=== PATIENT | male | born 1980 | race African-American/Black ===

== ENCOUNTER 2024-06-25 21:01 | Inpatient (IN) | payer OTHER, SELFPAY ==
[~2024-06-25] VITALS: Ht 180.3 cm; Wt 146.6 kg
[2024-06-25 21:28] LABS: BASOPHILS % 1.2 % (0.0-2.0); EOSINOPHILS % 1.9 % (0.0-5.0); HEMATOCRIT. 43.6 % (42.0-52.0); HEMOGLOBIN. 14.5 g/dL (14.0-18.0); LYMPHOCYTES % 24.6 % (20.0-50.0); MEAN CORPUSCULAR HEMOGLOBIN 28.3 pg (28.0-32.0); MEAN CORPUSCULAR HGB CONC 33.3 g/dL (31.0-37.0); MEAN CORPUSCULAR VOLUME 85.1 fL (80.0-94.0); MEAN PLATELET VOLUME 7.8 fl (7.4-10.4); MONOCYTES % 10.2 % (2.0-8.0); NEUTROPHILS % 62.1 % (40.0-76.0); PLATELET 323 x1000/uL (130-400); RED BLOOD CELL COUNT 5.12 mill/uL (4.7-6.1); RED CELL DISTRIBUTION WIDTH 15.1 % (11.6-14.6); WHITE BLOOD COUNT 6.3 x1000/uL (4.5-11.0)
[2024-06-25 21:31] LABS: CHLORIDE 104 mEq/L (98-107); POTASSIUM 5.2 mEq/L (3.5-5.1); SODIUM 136 mEq/L (136-145)
[2024-06-25 21:32] LABS: CALCIUM 9.2 mg/dL (8.7-10.4); CARBON DIOXIDE 24 mEq/L (21-32)
[2024-06-25 21:37] LABS: CREATININE 1.1 mg/dL (0.6-1.3); GLUCOSE 91 mg/dL (70-105); UREA NITROGEN BLOOD 13 mg/dL (9-23)
[2024-06-25 21:38] LABS: TROPONIN I HIGH SENSITIVITY 49 ng/L (3.0-53)
[2024-06-25] MEDS ORDERED: GUAIFENESIN 200MG/10ML SUGAR FREE UDC PO PRN (23:15)
[2024-06-25] MEDS ORDERED: MAGNESIUM/ALUMINUM HYDROXIDE/SIMETHICONE 30ML UDC PO PRN (23:15)
[2024-06-25] MEDS ORDERED: ACETAMINOPHEN 325MG TABLET PO PRN (23:15)
[2024-06-25] MEDS ORDERED: ONDANSETRON HCL 4MG/2ML INJ IV PRN (23:15)
[2024-06-25] MEDS ORDERED: DOCUSATE SODIUM 100MG CAPSULE PO PRN (23:15)
[2024-06-25] MEDS ORDERED: IPRATROPIUM/ALBUTEROL 0.5-3(2.5)MG/3ML NEB HHN PRN (23:15)
[2024-06-25] MEDS: AMLODIPINE 5MG TABLET PO NR (23:22)
[2024-06-25 23:52] LABS: TROPONIN I HIGH SENSITIVITY 283 ng/L (3.0-53)
[2024-06-26 01:03] LABS: CLARITY URINE CLEAR (CLEAR); COLOR URINE YELLOW (YELLOW); GLUCOSE URINE NEGATIVE (NEGATIVE); KETONES URINE NEGATIVE (NEGATIVE); LEUKOCYTE ESTERASE URINE NEGATIVE (NEGATIVE); NITRITE URINE NEGATIVE (NEGATIVE); OCCULT BLOOD URINE NEGATIVE (NEGATIVE); PH URINE 6.5 (4.5-8.0); PROTEIN URINE TRACE (NEGATIVE); SPECIFIC GRAVITY URINE 1.019 (1.005-1.030); UROBILINOGEN URINE 0.2 E.U./dL (0.2-1.0)
[2024-06-26 01:12] LABS: *AMPHETAMINES SCREEN URINE NEGATIVE (NEGATIVE); *BARBITURATES SCREEN URINE NEGATIVE (NEGATIVE); *BENZODIAZEPINES SCREEN URINE NEGATIVE (NEGATIVE); *COCAINE SCREEN URINE NEGATIVE (NEGATIVE); METHADONE URINE SCREEN NEGATIVE (NEGATIVE); OPIATES URINE SCREEN NEGATIVE (NEGATIVE)
[2024-06-26 01:13] LABS: CANNABINOID URINE SCREEN PRESUMPTIVE POSITIVE (NEGATIVE); ECSTASY MDMA SCREEN URINE NEGATIVE (NEGATIVE); PHENCYCLIDINE URINE SCREEN NEGATIVE (NEGATIVE)
[2024-06-26] MEDS ORDERED: ENOXAPARIN 150MG/ML SYR SUBCUT NR (04:00)
[2024-06-26 04:04] LABS: BASOPHILS % 0.8 % (0.0-2.0); EOSINOPHILS % 1.1 % (0.0-5.0); HEMATOCRIT. 44.2 % (42.0-52.0); HEMOGLOBIN. 14.3 g/dL (14.0-18.0); LYMPHOCYTES % 24.7 % (20.0-50.0); MEAN CORPUSCULAR HEMOGLOBIN 27.4 pg (28.0-32.0); MEAN CORPUSCULAR HGB CONC 32.3 g/dL (31.0-37.0); MEAN CORPUSCULAR VOLUME 84.8 fL (80.0-94.0); MEAN PLATELET VOLUME 7.2 fl (7.4-10.4); MONOCYTES % 12.7 % (2.0-8.0); NEUTROPHILS % 60.7 % (40.0-76.0); PLATELET 307 x1000/uL (130-400); RED BLOOD CELL COUNT 5.22 mill/uL (4.7-6.1); RED CELL DISTRIBUTION WIDTH 15.2 % (11.6-14.6); WHITE BLOOD COUNT 8.3 x1000/uL (4.5-11.0)
[2024-06-26 04:10] LABS: CHLORIDE 105 mEq/L (98-107); SODIUM 138 mEq/L (136-145)
[2024-06-26 04:11] LABS: CARBON DIOXIDE 26 mEq/L (21-32)
[2024-06-26 04:16] LABS: GLUCOSE 104 mg/dL (70-105); TRIGLYCERIDE 78 mg/dL (0-150); UREA NITROGEN BLOOD 11 mg/dL (9-23)
[2024-06-26 04:17] LABS: LDL CHOLESTEROL 135 mg/dL (5-100)
[2024-06-26 04:18] LABS: CHOLESTEROL 197 mg/dL (<200); HDL CHOLESTEROL 51 mg/dL (>55)
[2024-06-26 04:56] LABS: BACTERIA URINE NONE SEEN; RBC URINE 0-2 /hpf (0-2); SQUAMOUS EPITHELIAL CELL URINE NONE SEEN /lpf (RARE/1+); WBC URINE 0-2 /hpf (0-2)
[2024-06-26] MEDS: CLONIDINE 0.1MG TABLET PO PRN (04:57)
[2024-06-26 06:00] LABS: INR 0.9; PROTHROMBIN TIME 10.5 sec (9.6-11.0)
[2024-06-26] MEDS: ENOXAPARIN 150MG/ML SYR SUBCUT SCH (06:32)
[2024-06-26 08:59] VITALS: BP 16/119; PULSE 79; RESP 16; TEMP 36.22512; O2SAT 99
[2024-06-26 09:40] VITALS: BP 161/119; PULSE 79; RESP 18; TEMP 36.22512; O2SAT 99
[2024-06-26] MEDS: AMLODIPINE 5MG TABLET PO SCH ×2 (09:44→21:12)
[2024-06-26] MEDS: ASPIRIN 81MG EC TABLET PO SCH (09:44)
[2024-06-26 12:04] VITALS: BP 144/98; PULSE 72; RESP 18; TEMP 36.6404
[2024-06-26 12:20] VITALS: BP 144/98; PULSE 72; RESP 18; TEMP 36.61404; O2SAT 97
[2024-06-26 16:00] VITALS: BP 143/92; PULSE 63; RESP 18; TEMP 36.44736; O2SAT 100
[2024-06-26 18:51] LABS: TROPONIN I HIGH SENSITIVITY 4630 ng/L (3.0-53)
[2024-06-26 20:00] VITALS: BP 135/102; PULSE 63; RESP 16; TEMP 36.6696; O2SAT 100
[2024-06-26] MEDS: ATORVASTATIN CALCIUM 40MG TABLET PO SCH (21:12)
[2024-06-26 21:59] LABS: TROPONIN I HIGH SENSITIVITY 3496 ng/L (3.0-53)
[2024-06-27] VITALS: BP 151/89; PULSE 57; RESP 18; TEMP 36.61404; O2SAT 100
[2024-06-27 04:00] VITALS: BP 145/100; PULSE 53; RESP 16; TEMP 35.89176; O2SAT 74
[2024-06-27 08:30] VITALS: BP 186/112; PULSE 60; RESP 18; TEMP 36.72516; O2SAT 96
[2024-06-27 11:07] LABS: BASOPHILS % 0.9 % (0.0-2.0); HEMATOCRIT. 46.1 % (42.0-52.0); LYMPHOCYTES % 28.6 % (20.0-50.0); MEAN CORPUSCULAR HEMOGLOBIN 28.4 pg (28.0-32.0); MEAN CORPUSCULAR HGB CONC 32.5 g/dL (31.0-37.0); MEAN CORPUSCULAR VOLUME 87.4 fL (80.0-94.0); MEAN PLATELET VOLUME 7.8 fl (7.4-10.4); MONOCYTES % 11.4 % (2.0-8.0); NEUTROPHILS % 57.1 % (40.0-76.0); PLATELET 303 x1000/uL (130-400); RED BLOOD CELL COUNT 5.27 mill/uL (4.7-6.1); RED CELL DISTRIBUTION WIDTH 14.9 % (11.6-14.6); WHITE BLOOD COUNT 4.4 x1000/uL (4.5-11.0)
[2024-06-27 11:47] LABS: CHLORIDE 103 mEq/L (98-107); POTASSIUM 4.5 mEq/L (3.5-5.1); SODIUM 135 mEq/L (136-145)
[2024-06-27 11:48] LABS: CALCIUM 9.3 mg/dL (8.7-10.4); CARBON DIOXIDE 20 mEq/L (21-32)
[2024-06-27 11:53] LABS: CREATININE 0.8 mg/dL (0.6-1.3); GLUCOSE 113 mg/dL (70-105); UREA NITROGEN BLOOD 10 mg/dL (9-23)
[2024-06-27 12:00] VITALS: BP 151/95; PULSE 60; RESP 18; TEMP 36.44736; O2SAT 95
[2024-06-27 16:00] VITALS: BP 142/92; PULSE 64; RESP 18; TEMP 36.72516; O2SAT 95
[2024-06-27 16:18] LABS: BASOPHILS % 0.6 % (0.0-2.0); EOSINOPHILS % 2.6 % (0.0-5.0); HEMOGLOBIN. 15.4 g/dL (14.0-18.0); MEAN CORPUSCULAR HEMOGLOBIN 27.9 pg (28.0-32.0); MEAN CORPUSCULAR HGB CONC 32.8 g/dL (31.0-37.0); MEAN CORPUSCULAR VOLUME 85.1 fL (80.0-94.0); MEAN PLATELET VOLUME 7.9 fl (7.4-10.4); NEUTROPHILS % 55.8 % (40.0-76.0); PLATELET 306 x1000/uL (130-400); RED BLOOD CELL COUNT 5.53 mill/uL (4.7-6.1); WHITE BLOOD COUNT 5.3 x1000/uL (4.5-11.0)
[2024-06-27 18:53] LABS: INR 0.9; PARTIAL THROMBOPLASTIN TIME 31.3 sec (23.4-31.0); PROTHROMBIN TIME 10.5 sec (9.6-11.0)
[2024-06-27] MEDS: HEPARIN 5000 UNITS/ML VIAL IV NR (19:49)
[2024-06-27 20:00] VITALS: BP 158/106; PULSE 66; RESP 19; TEMP 36.61404; O2SAT 100
[2024-06-27] MEDS: HEPARIN 25,000 UNITS PREMIX 250 ML IV PRN (20:08)
[2024-06-27] MEDS: ATORVASTATIN CALCIUM 40MG TABLET PO SCH (21:04)
[2024-06-28] VITALS: BP_SYST 123; BP_SYST 156; BP_DIAS 63; BP_DIAS 96; PULSE 62; PULSE 69; RESP 19; TEMP 36.61404; TEMP 36.6696; O2SAT 100; O2SAT 98
[2024-06-28] MEDS ORDERED: HEPARIN 5000 UNITS/ML VIAL IV PRN (01:00)
[2024-06-28 02:39] LABS: BASOPHILS % 0.6 % (0.0-2.0); EOSINOPHILS % 2.6 % (0.0-5.0); HEMATOCRIT. 47.6 % (42.0-52.0); HEMOGLOBIN. 15.7 g/dL (14.0-18.0); LYMPHOCYTES % 18.2 % (20.0-50.0); MEAN CORPUSCULAR HEMOGLOBIN 28.3 pg (28.0-32.0); MEAN CORPUSCULAR HGB CONC 32.9 g/dL (31.0-37.0); MEAN PLATELET VOLUME 7.5 fl (7.4-10.4); MONOCYTES % 10.3 % (2.0-8.0); NEUTROPHILS % 68.3 % (40.0-76.0); PLATELET 311 x1000/uL (130-400); RED BLOOD CELL COUNT 5.54 mill/uL (4.7-6.1); RED CELL DISTRIBUTION WIDTH 14.8 % (11.6-14.6)
[2024-06-28 02:52] LABS: CHLORIDE 102 mEq/L (98-107); POTASSIUM 3.8 mEq/L (3.5-5.1); SODIUM 135 mEq/L (136-145)
[2024-06-28 02:53] LABS: CALCIUM 9.4 mg/dL (8.7-10.4); CARBON DIOXIDE 27 mEq/L (21-32)
[2024-06-28 02:58] LABS: CREATININE 0.9 mg/dL (0.6-1.3); GLUCOSE 92 mg/dL (70-105); UREA NITROGEN BLOOD 10 mg/dL (9-23)
[2024-06-28 04:00] VITALS: BP 138/88; PULSE 61; RESP 18; TEMP 36.6696; O2SAT 100
[2024-06-28] MEDS: HEPARIN 5000 UNITS/ML VIAL IV PRN (04:19)
[2024-06-28 05:22] LABS: CLARITY URINE CLEAR (CLEAR); COLOR URINE YELLOW (YELLOW); GLUCOSE URINE NEGATIVE (NEGATIVE); KETONES URINE NEGATIVE (NEGATIVE); LEUKOCYTE ESTERASE URINE NEGATIVE (NEGATIVE); NITRITE URINE NEGATIVE (NEGATIVE); OCCULT BLOOD URINE NEGATIVE (NEGATIVE); PH URINE 5.5 (4.5-8.0); PROTEIN URINE NEGATIVE (NEGATIVE); SPECIFIC GRAVITY URINE 1.018 (1.005-1.030); UROBILINOGEN URINE 0.2 E.U./dL (0.2-1.0)
[2024-06-28 08:00] VITALS: BP 148/107; PULSE 64; RESP 18; TEMP 36.3918; O2SAT 99
[2024-06-28] MEDS ORDERED: DIPHENHYDRAMINE 50MG/ML VIAL ONE (08:33)
[2024-06-28] MEDS ORDERED: MIDAZOLAM HCL 2 MG/2 ML VIAL ONE (08:34)
[2024-06-28] MEDS ORDERED: FENTANYL CITRATE/PF 50MCG/ML 2ML VIAL ONE (08:34)
[2024-06-28] MEDS ORDERED: VERAPAMIL HCL 2.5 MG/1 ML 2ML VIAL IV ONE (08:35)
[2024-06-28] MEDS ORDERED: LIDOCAINE HCL 1% 10 MG/ML 10ML VIAL ONE (08:35)
[2024-06-28] MEDS ORDERED: IODIXANOL 320MG/ML 100 ML BOTTLE IV ONE ×2 (08:35→09:50)
[2024-06-28] MEDS ORDERED: HEPARIN 1000 UNITS/ML 10ML ONE ×3 (08:35→09:42)
[2024-06-28] MEDS ORDERED: ATROPINE SULFATE 1MG/10ML SYR ONE (09:58)
[2024-06-28] MEDS ORDERED: CLOPIDOGREL 75MG TABLET ONE (10:03)
[2024-06-28] MEDS ORDERED: ASPIRIN 325MG TABLET ONE (10:03)
[2024-06-28] MEDS: SODIUM CHLORIDE 0.45% 500 ML IV ONE (10:45)
[2024-06-28] MEDS ORDERED: ATROPINE SULFATE 1MG/10ML SYR IV PRN (10:45)
[2024-06-28] MEDS: ISOSORBIDE MONONITRATE 30MG TABLET SR 24HR PO SCH (11:24)
[2024-06-28] MEDS: NITROGLYCERIN 0.4MG TABLET SL SL PRN (11:24)
[2024-06-28 12:00] VITALS: BP 176/113; PULSE 67; RESP 24; TEMP 36.78072; O2SAT 98
[2024-06-28 16:00] VITALS: BP 158/104; PULSE 74; RESP 19; TEMP 36.6696; O2SAT 99
[2024-06-28] MEDS: ACETAMINOPHEN 325MG TABLET PO PRN (19:09)
[2024-06-28 20:00] VITALS: BP 172/94; PULSE 71; RESP 18; TEMP 36.78072; O2SAT 99
[2024-06-29] VITALS: BP 156/109; PULSE 67; RESP 16; TEMP 36.72516; O2SAT 98
[2024-06-29 04:00] VITALS: BP 178/119; PULSE 90; RESP 20; TEMP 36.89184; O2SAT 97
[2024-06-29 06:27] VITALS: BP 150/103
[2024-06-29 07:59] LABS: CARBON DIOXIDE 25 mEq/L (21-32); CHLORIDE 101 mEq/L (98-107); HEMATOCRIT. 46.2 % (42.0-52.0); HEMOGLOBIN. 15.4 g/dL (14.0-18.0); MEAN CORPUSCULAR HEMOGLOBIN 28.4 pg (28.0-32.0); MEAN CORPUSCULAR HGB CONC 33.4 g/dL (31.0-37.0); MEAN CORPUSCULAR VOLUME 84.9 fL (80.0-94.0); MEAN PLATELET VOLUME 8.1 fl (7.4-10.4); PLATELET 330 x1000/uL (130-400); POTASSIUM 3.9 mEq/L (3.5-5.1); RED BLOOD CELL COUNT 5.45 mill/uL (4.7-6.1); RED CELL DISTRIBUTION WIDTH 14.9 % (11.6-14.6); SODIUM 135 mEq/L (136-145); WHITE BLOOD COUNT 6.2 x1000/uL (4.5-11.0)
[2024-06-29 08:00] VITALS: BP 150/105; PULSE 86; RESP 18; TEMP 36.78072; O2SAT 97
[2024-06-29 08:00] LABS: CALCIUM 9.4 mg/dL (8.7-10.4)
[2024-06-29 08:04] LABS: CREATININE 0.9 mg/dL (0.6-1.3)
[2024-06-29 08:05] LABS: GLUCOSE 91 mg/dL (70-105); UREA NITROGEN BLOOD 10 mg/dL (9-23)
[2024-06-29 08:15] LABS: DIFFERENTIAL COMMENT 1
[2024-06-29] MEDS: CLOPIDOGREL 75MG TABLET PO SCH (08:55)
[2024-06-29] MEDS ORDERED: ISOS30TA91 PO (11:52)
[2024-06-29] MEDS ORDERED: AMLO5TAB88 PO (11:52)
[2024-06-29] MEDS ORDERED: CLOP-31 PO (11:52)
[2024-06-29] MEDS ORDERED: LIP40 PO (11:52)
[2024-06-29] MEDS ORDERED: ASPI-1406 PO (11:52)
[2024-06-29 12:51] VITALS: BP 150/105; PULSE 86; TEMP 98.2; O2SAT 97
[2024-06-29 20:52] LABS: PLATELET ESTIMATE NORMAL
== END 2024-06-29 13:24 | disposition home or self-care (01) | DRG 322 ==
LOC: ER 21:01 → EDBEDREQ 22:24 → EDBEDREQTM 22:24 → 5WST 06-26 08:18 → 7EST 06-27 08:59 → 3WST 06-28 10:19
PROVIDERS: ADMIT Hospitalist; ATTEND Hospitalist
PROC: 4A023N7 Measurement of Cardiac Sampling and Pressure, Left Heart, Percutaneous Approach (ICD-10-PCS; principal; 2024-06-28)
PROC: B2110ZZ Fluoroscopy of Multiple Coronary Arteries using High Osmolar Contrast (ICD-10-PCS; 2024-06-28)
PROC: 027034Z Dilation of Coronary Artery, One Artery with Drug-eluting Intraluminal Device, Percutaneous Approach (ICD-10-PCS; 2024-06-28)
PROC: B240ZZ3 Ultrasonography of Single Coronary Artery, Intravascular (ICD-10-PCS; 2024-06-28)
PROC: 02703ZZ Dilation of Coronary Artery, One Artery, Percutaneous Approach (ICD-10-PCS; 2024-06-28)
DX: I21.4 Non-ST elevation (NSTEMI) myocardial infarction (principal); Z68.42 Body mass index [BMI] 45.0-49.9, adult; I11.9 Hypertensive heart disease without heart failure; E66.9 Obesity, unspecified; E78.5 Hyperlipidemia, unspecified; F17.210 Nicotine dependence, cigarettes, uncomplicated; E87.5 Hyperkalemia; Z20.822 Contact with and (suspected) exposure to COVID-19; I25.10 Atherosclerotic heart disease of native coronary artery without angina pectoris; Z79.82 Long term (current) use of aspirin; I25.2 Old myocardial infarction; Z79.899 Other long term (current) drug therapy; Z91.148 Patient's other noncompliance with medication regimen for other reason
CPT/HCPCS: 36415; 71045; 76604; 80048; 80061; 80305; 81003; 83036; 83880; 84484; 85025; 85347; 86850; 86900; 87426; 92928; 92978; 93005; 93306; 93458; 93880; 99291; C1753; C1769; C1874; C1887; C1893; J0461; J1200; J1644; J1650; J2250; J3010; J3490; Q9967